=== PATIENT | male | born 1950 | race Hispanic/Latino ===

== ENCOUNTER → 2018-12-11 | Day surgery (SDC) | payer MEDICARE ==
[2018-12-10 12:33] LABS: BASOPHILS # (AUTO) 0.1 (0.0-0.1); BASOPHILS % 0.6 % (0.0-1.0); EOSINOPHILS # (AUTO) 0.1 (0.0-0.4); EOSINOPHILS % 0.9 % (0.0-6.0); HEMATOCRIT 38.4 % (38.2-49.6); HEMOGLOBIN 13.3 g/dL (14.0-18.0); LYMPHOCYTES # (AUTO) 2.4 (1.0-3.2); LYMPHOCYTES % 31.2 % (18.0-39.1); MEAN CORPUSCULAR HEMOGLOBIN 31.5 pg (28-32); MEAN CORPUSCULAR HGB CONC 34.6 g/dL (31-35); MONOCYTES # (AUTO) 0.6 (0.2-0.8); MONOCYTES % 8.3 % (4.4-11.3); NEUTROPHILS # (AUTO) 4.5 (2.1-6.9); NEUTROPHILS % 58.7 % (38.7-80.0); PLATELET COUNT 307 x10e3/uL (140-360); RED BLOOD COUNT 4.22 x10e6/uL (4.3-5.7); RED CELL DISTRIBUTION WIDTH 13.8 % (11.7-14.4)
[~2018-12-11] MED LIST: ASPIR 8181 MG PO; ATORVASTATIN CA20 MG PO; GABAPENTIN300 MG PO; NIFEDIPINE20 MG PO; OMEPRAZOLE40 MG PO; PROPOFOL IV EMULSION 10 MG/ML 50 ML VIAL ONE; SUCRALFATE1 GM PO; ULTRAM50 MG PO
--- OUTSIDE RECORDS SUMMARY | 2018-12-11 05:29 | XMS REPORT ---
Author Author [facility] Address Unknown Phone Unavailable Care Team Providers Care Water Leak Repairer Name Role Phone Unavailable Unavailable Payers Payer Name Policy Type Policy Number Effective Date Expiration Date Problems This patient has no known problems. Allergies, Adverse Reactions, Alerts Allergy Name Allergy Type Status Severity Reaction(s) Onset Date Inactive Date Treating Clinician Comments No Known Allergies DA Active U 2018-07-28 00:00:00 No Known Allergies DA Active U 2017-01-07 00:00:00 Medications This patient has no known medications. Results Test Description Test Time Test Comments Text Results Atomic Results Result Comments [facility] 2018-01-14 12:47:00 RUN DATE: 01/14/18 [facility] PAGE 1 RUN TIME: 1247 Specimen Inquiry RUN USER: INTERFACE PATIENT: SERGIO LARSON LOC: [facility] Torres #: [id number] AGE/SX: 67/M ROOM: RE01/10/18REG DR: Heri Gallardo MD : 48 BED: DIS: STATUS: [facility] TLOC: SPEC #: [id number] RECD: 01/10/18 STATUS: [facility] #: [id number] GAYATHRI: 01/10/18- DR: Heri Gallardo MD ENTERED: 01/10/18 SP TYPE: BONE OTHR DR: Tobias Arnold MD ORDERED: GROSS COPIES TO: Heri Gallardo MD [address] [place] [address] Tobias Arnold MD [address] [place] [address] PROCEDURES: GROSS (01/13/181209) TISSUES: VERTEBRA, NOS - T12 FNA; BONE BX AND 1 SLIDE CLINICAL HISTORY COLLECTION DATE: 01/10/18 ACUTE COMPRESSION FRACTURE T12 COMMENT Multiple levels through the core biopsy are examined. No atypical cellular infiltrates, lymphoid aggregates or malignancy are identified. Correlation is recommended. FINAL DIAGNOSIS Bone, T12, core biopsy and touch prep: TRABECULAR BONE WITH FATTY REPLACEMENT OF MARROW ELEMENTS, see comment FEW ACUTE INFLAMMATORY CELLS IN BACKGROUND OF BLOOD NEGATIVE FOR MALIGNANCY RRB/sm D 95011, 13439, 84277 CONTINUED ON NEXT PAGE ---RUN DATE: 01/14/18 [facility] PAGE 2 RUN TIME: 1247 Specimen Inquiry RUN USER: INTERFACE SPEC #: [id number] PATIENT: SERGIO LARSON #[id number] (Continued) MACROSCOPIC The specimen consists of one slide for processing and evaluation. Received in a container labeled with the patient's name and identified as "T12 bx". It consists of a core biopsy of light morales-pink bone measuring 0.6 cm in length with a diameter up to 0.15 cm. The specimen is submitted for decalcification and follow up histologic evaluation in a single cassette. GROSS PERFORMED AT [facility] [address] [place] [address] (p)[phone] MICROSCOPIC MICROSCOPIC PERFORMED AT [facility] All of the stains, including any controls performed, stain appropriately. [facility] [address] [place] [address] (p)[phone] PERFORMING SITE Diagnosis performed at: [facility], [place] [address] [place] [address] Signed SIGNATURE ON FILE Osmel Sparrow 01/14/18 1247 END OF REPORT
[2018-12-11 08:40] VITALS: BP 111/64
== END | disposition home or self-care (01) ==
LOC: OR 05:16
PROVIDERS: ATTEND Internal Medicine Gastroenterology
DX: Z12.11 Encounter for screening for malignant neoplasm of colon (principal); K64.8 Other hemorrhoids; K21.9 Gastro-esophageal reflux disease without esophagitis; Z71.3 Dietary counseling and surveillance; I10 Essential (primary) hypertension; Z01.810 Encounter for preprocedural cardiovascular examination; Z01.812 Encounter for preprocedural laboratory examination; Z79.82 Long term (current) use of aspirin; Z86.73 Personal history of transient ischemic attack (TIA), and cerebral infarction without residual deficits; I49.1 Atrial premature depolarization
CPT/HCPCS: 36415; 85025; 93005; G0121; J2704; 45378

== ENCOUNTER 2019-03-20 14:27 | Observation (INO) | payer MEDICARE ==
[~2019-03-20] VITALS: Ht 165.1 cm; Wt 60.8 kg
[~2019-03-20 14:27] MED LIST changes: -PROPOFOL IV EMULSION 10 MG/ML 50 ML VIAL ONE
[2019-03-20 15:26] LABS: BASOPHILS # (AUTO) 0.1 (0.0-0.1); BASOPHILS % 0.8 % (0.0-1.0); EOSINOPHILS # (AUTO) 0.1 (0.0-0.4); EOSINOPHILS % 1.4 % (0.0-6.0); HEMATOCRIT 41.4 % (38.2-49.6); HEMOGLOBIN 14.4 g/dL (14.0-18.0); LYMPHOCYTES # (AUTO) 2.5 (1.0-3.2); LYMPHOCYTES % 29.9 % (18.0-39.1); MEAN CORPUSCULAR HEMOGLOBIN 31.6 pg (28-32); MEAN CORPUSCULAR HGB CONC 34.8 g/dL (31-35); MONOCYTES # (AUTO) 0.6 (0.2-0.8); MONOCYTES % 6.6 % (4.4-11.3); NEUTROPHILS # (AUTO) 5.2 (2.1-6.9); NEUTROPHILS % 61.1 % (38.7-80.0); PLATELET COUNT 312 x10e3/uL (140-360); RED BLOOD COUNT 4.55 x10e6/uL (4.3-5.7); RED CELL DISTRIBUTION WIDTH 13.8 % (11.7-14.4)
[2019-03-20 15:27] LABS: INR 0.98; PROTHROMBIN TIME 13.5 seconds (11.9-14.5)
[2019-03-20 15:28] LABS: PARTIAL THROMBOPLASTIN TIME 30.2 seconds (23.8-35.5)
--- NOTE | 2019-03-20 15:49 | NUR ---
A/S SAID THEY WILL FAX OVER COPY OF PT MRI
[2019-03-20 16:00] LABS: ALANINE AMINOTRANSFERASE 21 IU/L (0-55); ALBUMIN 3.9 g/dL (3.5-5.0); ALBUMIN/GLOBULIN RATIO 1.4 (0.8-2.0); ALKALINE PHOSPHATASE 103 IU/L (40-150); ANION GAP 11.8 mmol/L (8-16); BLOOD UREA NITROGEN 8 mg/dL (7-26); BUN/CREATININE RATIO 11 (6-25); CALCIUM 8.4 mg/dL (8.4-10.2); CARBON DIOXIDE 22 mmol/L (22-29); CHLORIDE 102 mmol/L (98-107); CREATINE KINASE 63 IU/L (30-200); CREATININE, SERUM 0.74 mg/dL (0.72-1.25); EST GLOMERULAR FILTRATION RATE > 60 ML/MIN (60-); GLUCOSE 96 mg/dL (74-118); POTASSIUM 3.8 mmol/L (3.5-5.1); SODIUM 132 mmol/L (136-145)
[2019-03-20] MEDS ORDERED: METOPROLOL TARTRATE INJ 1 MG/ML VIAL IV PRN ×2 (16:45→19:45)
[2019-03-20 17:04] LABS: BILIRUBIN,URINE NEGATIVE (NEGATIVE); CLARITY,URINE SL CLOUDY (CLEAR); COLOR,URINE YELLOW (YELLOW); KETONES,URINE NEGATIVE (NEGATIVE); LEUKOCYTE ESTERASE ,URINE NEGATIVE (NEGATIVE); NITRITE,URINE NEGATIVE (NEGATIVE); PROTEIN,URINE DIPSTICK NEGATIVE (NEGATIVE); URINE UROBILINOGEN 0.2 mg/dL (0.2 - 1)
[2019-03-20 17:19] LABS: BACTERIA,URINE FEW /HPF; EPITHELIAL CELLS,URINE FEW /LPF; RBC,URINE 0-5 /HPF (0-5)
--- NOTE | 2019-03-20 18:15 | NUR ---
PT ARRIVED VIA WC FROM ER, AA&OX3, RA AT THIS TIME, ORIENTED TO ROOM AND CALL LIGHT SYSTEM, CALL LIGHT WITHIN REACH, FAMILY AT SIDE
--- NOTE | 2019-03-20 18:27 | NUR ---
SPOKE WITH MD ELY, MADE AWARE OF NEW PT, ORDERS NOTED TO CONSULT DR MORAN
--- NOTE | 2019-03-20 18:29 | NUR ---
PT MADE AWARE OF NPO ORDERS AT THIS TIME
--- NOTE | 2019-03-20 19:35 | NUR ---
SPOKE WITH MD SAWANT, AWARE OF CONSULT, ORDERS NOTED, SPOKE WITH DR ELY , MADE AWARE THAT DR SAWANT IS AWARE OF PT AND ORDERS NOTED,
[2019-03-20] MEDS ORDERED: ACETAMINOPHEN 325 MG TAB PO PRN (19:45)
[2019-03-20 20:00] VITALS: BP 121/63
--- NOTE | 2019-03-20 22:17 | NUR ---
SPOKE WITH MD MORAN CONCERNING CONSULTATION. NO NEW ORDERS AT THIS TIME.
[2019-03-21] VITALS: BP 118/58
[2019-03-21 04:00] VITALS: BP 134/63
[2019-03-21] MEDS ORDERED: NAPROXEN250 MG PO (04:40)
--- NOTE | 2019-03-21 07:30 | NUR ---
Received patient and a/ox3, pleasant and in bed, assisted to bathroom, unsteady gait, able to call for assistance, will monitor.
[2019-03-21 08:12] VITALS: BP 137/61
[2019-03-21 08:49] VITALS: BP 137/61
[2019-03-21] MEDS ORDERED: NIFEDIPINE 10 MG CAP PO SCH (09:00)
[2019-03-21] MEDS ORDERED: NIFEDIPINE CR 30 MG TAB PO SCH ×2 (09:00→10:30)
[2019-03-21] MEDS ORDERED: KEPPRA500 MG PO (09:10)
--- NOTE | 2019-03-21 09:11 | NUR ---
H&P cc: headache HPI: 68yoM, PCP , cardio ischemic stroke in 07/2018, now with headache for 1 month; Found to have cerebral hemorrhage. PMH: ischemic strome 07/2018, Hx cig, GERD, HLD, HTN PSHx; back Allergies; see emr FH/SH; ; quit cigs 07/2018 Meds; see MAR ROS: no f/c/s/N/V/D/vision changes/cp/sob/skin rash/back pain/confusion/mood changes v/s; revd PE tired appearing anicteric ns1s2 mod bs soft nt nd no e/t skin dry n. 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 D/W Dr.Pakzaban Giuseppe Evans MD, PhD.
--- NOTE | 2019-03-21 09:24 | NUR ---
Rounds by Dr. Evans and Dr. Aranda and orders for MRI but no MRI in the facility at this time and patient will be transferred to [place] for complete work-up per Neurologist.
--- NOTE | 2019-03-21 10:14 | NUR ---
Patient alert and responsive, no resp distress, call to case manager specialist x2 for arrangements to transfer patient to [place] but unable to get her, will attempt again
[2019-03-21 10:29] LABS: CHOL/HDL RATIO 3.4 (3.9-4.7)
--- NOTE | 2019-03-21 11:27 | NUR ---
ORDER RECEIVED FOR TRANSFER TO [facility]. BEDSIDE RN; JACQUES, STATES NO MRI AVAILABLE ON THE WEEKENDS. MET W THE PT AND AT THE BEDSIDE. AND PT IN AGREEMENT W TRANSFER TO [facility]. CHOICE LETTER WAS SIGNED AND MOT INITIATED. CALL TO [facility] @ [phone] / FAX: [phone]. SPOKE W RONNIE. FAXED CLINICAL. WILL AWAIT CALL BACK.
[2019-03-21 12:00] VITALS: BP 146/62
--- NOTE | 2019-03-21 12:18 | NUR ---
HOSPITAL TRANSFER INFORMATION PATIENT HAS BEEN ACCEPTED TO: NAME: [facility] ADDRESS: [address] [place] [address] ACCEPTING GUN STOCK CHECKER: JOSELYN CABRALES, ACCEPTING MD: QUINTEN ELY MD ROOM: 5020 NURSE CALL REPORT TO: [phone] THE FOLLOWING DOCUMENTS MUST ACCOMPANY PATIENT FOR TRANSFER: COPIED CHART: PROGRAM DIRECTOR AIR TALENT, DANUTA BOGGS INFO RECEIVED FROM: DIANE FROM TRANSFER CENTER; [facility] ORDER/RECONCILED MED LIST: BY JACQUES ESTRADA [id number] DNR: N/A
--- NOTE | 2019-03-21 13:28 | NUR ---
Patient alert and responsive, no resp distress, report given to Ash at [facility] and ambulance will be called at this time for transfer, patient going to room 4513
--- NOTE | 2019-03-21 15:50 | Consultation ---
DATE OF CONSULTATION: 03/21/2019 REASON FOR CONSULTATION: Brain hemorrhage. HISTORY OF PRESENT ILLNESS: The patient is a 68-year-old hypertensive man, who presumably had a stroke in July and was admitted for one day at [facility]. At that time, he was symptomatic with transient dizziness. He has been on aspirin since then. He now presents with a one-month history of bifrontal headaches without any other symptoms. Apparently, he had an outpatient MRI without contrast, which revealed a subcortical hemorrhage in the right frontal lobe. He was admitted through the emergency room last night. He has remained neurologically intact except for mild gait instability. IMPRESSION: Since MRI is not available at this hospital over the weekend, he needs to be transferred to [facility] for full workup including MRI of the brain with and without contrast today. Ck Aranda MD PP/EUGENIA /[id number]
--- NOTE | 2019-03-22 04:37 | NUR ---
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 D/W d/c [facility] stable f/u medical team at hospital d/c>35mins Giuseppe Evans MD, PhD.
[2019-03-22] MEDS ORDERED: NIFEDIPINE CR 30 MG TAB PO SCH (10:30)
== END 2019-03-21 16:28 | disposition short-term general hospital (02) ==
LOC: ER 14:27 → ERHOLD 16:38 → ER 17:37 → MED/SURG 18:06
PROVIDERS: ADMIT Internal Medicine; ATTEND Internal Medicine
DX: I61.0 Nontraumatic intracerebral hemorrhage in hemisphere, subcortical (principal); I10 Essential (primary) hypertension; K21.9 Gastro-esophageal reflux disease without esophagitis; E78.5 Hyperlipidemia, unspecified; Z86.73 Personal history of transient ischemic attack (TIA), and cerebral infarction without residual deficits; Z82.49 Family history of ischemic heart disease and other diseases of the circulatory system; Z87.891 Personal history of nicotine dependence; R53.81 Other malaise; E87.1 Hypo-osmolality and hyponatremia
CPT/HCPCS: 36415 ×2; 80053; 80061; 81001; 82550; 82553; 84484; 85025; 85610; 85730; 93005; 93306; 99284; G0378 ×2